=== PATIENT | male | born 1950 | race Caucasian/White ===

== ENCOUNTER 2017-12-13 22:15 | Observation (INO) ==
--- NOTE | 2017-12-13 22:23 | Emergency Department Note ---
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 He presents today due to right-sided facial numbness. He states that these symptoms began about 4 hours ago. also states that he has been somewhat confused. He has also had some drooping of his left upper lip. He denies any other numbness, tingling, weakness anywhere else. Denies any chest pain, shortness breath, nausea, vomiting, fevers, diarrhea, abdominal pain - Related Data Home Medications: Home Medications Medication Instructions Recorded Confirmed Insulin Glargine [Lantus] 25 units SQ HS 12/14/17 12/14/17 metFORMIN [Glucophage] 500 mg PO BIDWM 12/14/17 12/14/17 Allergies/Adverse Reactions: Allergies Allergy/AdvReac Type Severity Reaction Status Date / Time gabapentin AdvReac Itching Verified 12/13/17 22:38 All systems ED: reviewed and negative except as stated. Constitutional: Denies: fever Cardiovascular: Denies: chest pain Respiratory: Denies: cough, dyspnea Gastrointestinal: Denies: abdominal pain, nausea, vomiting, diarrhea Genitourinary: Denies: urgency, dysuria, frequency Neurological: Reports: numbness. Denies: headache, weakness Past Medical History - Past Medical History Attestation: Yes The following information was validated with the patient. Source: patient Physical Exam - General Limitations: no limitations General appearance: alert, in no apparent distress - Head Head exam: atraumatic, normocephalic, normal inspection - Eye Eye exam: Present: PERRL, EOMI, other (occasional esotropia when trying to close eyes) - ENT ENT exam: normal oropharynx, mucous membranes moist, other (drooping of left nasolabial fold, partial paralysis of left upper lip) - Neck Neck exam: Present: normal inspection, full ROM, trachea midline - Chest Chest inspection: Present: normal inspection, symmetric chest wall rise - Respiratory Respiratory exam: Present: normal lung sounds bilaterally - Cardiovascular Cardiovascular exam: Present: regular rate, normal rhythm, normal heart sounds - Abdominal Exam Abdominal exam: Present: soft, Non-Tender. Absent: tenderness, distention, guarding, rebound, rigidity - Extremities Exam Extremities exam: Present: normal inspection, full ROM. Absent: tenderness, pedal edema - Back Exam Back exam: Present: normal inspection, full ROM. Absent: tenderness - Neurological Exam Neurological exam: Present: alert, oriented X3, other (drooping of left nasolabial fold, partial paralysis of left upper lip; no other focal neuro deficits; NIH 2) - Psychiatric Psychiatric exam: Present: normal affect, normal mood - Skin Skin exam: Present: warm, dry, intact, normal color Course Course Narrative: Elevated blood pressure of 170s over 90s. Otherwise, the rest of the vitals were within normal limits. Physical exam showed: drooping of left nasolabial fold, partial paralysis of left upper lip; no other focal neuro deficits; NIH 2. The rest of his exam was fairly benign. Karuna was called. We will obtain basic blood work, EKG, chest x-ray, troponin, CT of the head to assess for stroke. Patient has no involvement of the left eyebrow, which is more concerning for stroke rather than something like Lam's palsy that would effect both upper and lower face. 23:22 EKG negative for any acute ST elevation or depression, normal sinus rhythm. Trop negative, CXR negative. CT of the head was negative for any acute intracranial abnormality. Patient was evaluated by [facility] stroke team, they believe that this is likely Lam's palsy due to left nasolabial paralysis and minor involvement of the left upper eyelid. However, he does have sparing of the left eyebrow. They do not feel that TPA was necessary at this time. Patient agreed. They did state that there is still a small risk that this was a stroke. Due to this along with the history of the patient being confused prior to coming in, will admit for further stroke workup, recommend MRI/MRA of the head and neck and/or Doppler of the carotids for further assessment. Vital Signs Temperature 98.1 F 12/13/17 22:19 Pulse Rate 74 12/13/17 22:19 Respiratory Rate 16 12/13/17 22:19 Blood Pressure 171/97 12/13/17 22:19 O2 Sat by Pulse Oximetry 97 12/13/17 22:19 Temperature 98.2 F 12/14/17 02:44 Pulse Rate 62 12/14/17 02:44 Respiratory Rate 16 12/14/17 02:44 Blood Pressure 170/90 12/14/17 02:44 O2 Sat by Pulse Oximetry 96 12/14/17 02:44 Oxygen Delivery Oxygen Delivery Room Air Neuro Symptoms/Deficit - MDM Narrative Medical decision making narrative: EKG negative for any acute ST elevation or depression, normal sinus rhythm. Trop negative, CXR negative. CT of the head was negative for any acute intracranial abnormality. Patient was evaluated by [facility] stroke team, they believe that this is likely Lam's palsy due to left nasolabial paralysis and minor involvement of the left upper eyelid. However, he does have sparing of the left eyebrow. They do not feel that TPA was necessary at this time. Patient agreed. They did state that there is still a small risk that this was a stroke. Due to this along with the history of the patient being confused prior to coming in, will admit for further stroke workup, recommend MRI/MRA of the head and neck and/or Doppler of the carotids for further assessment. - Medical Records Medical records reviewed: Yes I reviewed the patient's medical records. - Lab Data Lab results reviewed: Yes I reviewed the patient's lab results. Result diagrams: 12/13/17 22:33 12/13/17 22:33 Lab Results 12/13/17 12/13/17 12/13/17 Range/Units 22:17 22:33 22:33 WBC 7.8 (4.3-11.1) K/mcL RBC 4.53 (4.19-5.50) M/mcL Hgb 13.7 (12.9-16.9) g/dL Hct 40.7 (37.5-50.1) % MCV 89.8 (83.0-100.0) fL MCH 30.2 (28.0-33.3) pg MCHC 33.7 (31.6-35.5) g/dL RDW 12.8 (11.5-14.5) % Plt Count 242 (140-400) K/mcL MPV 10.6 (9.4-12.4) fL Immature Gran % 0.3 (0-4) % Seg Neutrophils % 51.2 % Lymphocytes % 34.9 % Monocytes % 9.3 % Eosinophils % 3.3 % Basophils % 1.0 % Neutrophils # 4.0 (1.6-8.9) K/mcL Lymphocytes # 2.7 (0.6-4.6) K/mcL Monocytes # 0.7 (0.0-1.3) K/mcL Eosinophils # 0.3 (0.0-0.6) K/mcL Basophils # 0.1 (0.0-0.2) K/mcL PT 12.5 H (9.4-12.1) Seconds INR 1.2 APTT 28.2 (26.0-36.0) Seconds Sodium (136-145) mEq/L Potassium (3.5-5.1) mEq/L Chloride (98-107) mEq/L Carbon Dioxide (23-29) mEq/L BUN (8-23) mg/dL Creatinine (0.70-1.30) mg/dL Est GFR ( Amer) (> 60) Est GFR (Non-Af Amer) (> 60) BUN/Creatinine Ratio (6-26) Glucose (70-105) mg/dL POC Glucose 235 H (58-89) Calculated Osmolality (280-300) Calcium (8.6-10.3) mg/dL Troponin I (< 0.04) ng/mL 12/13/17 12/13/17 Range/Units 22:33 22:33 WBC (4.3-11.1) K/mcL RBC (4.19-5.50) M/mcL Hgb (12.9-16.9) g/dL Hct (37.5-50.1) % MCV (83.0-100.0) fL MCH (28.0-33.3) pg MCHC (31.6-35.5) g/dL RDW (11.5-14.5) % Plt Count (140-400) K/mcL MPV (9.4-12.4) fL Immature Gran % (0-4) % Seg Neutrophils % % Lymphocytes % % Monocytes % % Eosinophils % % Basophils % % Neutrophils # (1.6-8.9) K/mcL Lymphocytes # (0.6-4.6) K/mcL Monocytes # (0.0-1.3) K/mcL Eosinophils # (0.0-0.6) K/mcL Basophils # (0.0-0.2) K/mcL PT (9.4-12.1) Seconds INR APTT (26.0-36.0) Seconds Sodium 138 (136-145) mEq/L Potassium 4.5 (3.5-5.1) mEq/L Chloride 102 (98-107) mEq/L Carbon Dioxide 26 (23-29) mEq/L BUN 34 H (8-23) mg/dL Creatinine 1.75 H (0.70-1.30) mg/dL Est GFR ( Amer) 47 L (> 60) Est GFR (Non-Af Amer) 39 L (> 60) BUN/Creatinine Ratio 19 (6-26) Glucose 218 H (70-105) mg/dL POC Glucose (58-89) Calculated Osmolality 300 (280-300) Calcium 9.5 (8.6-10.3) mg/dL Troponin I < 0.03 (< 0.04) ng/mL - Radiology Data Radiology results reviewed: Yes I reviewed the patient's radiology results. Head CT 12/13/17 22:29 IMPRESSION: No acute intracranial abnormality. Mild periventricular white matter low attenuation likely represent sequela of chronic small vessel ischemic disease. Partial visualization of near complete opacification of right maxillary sinus with internal high density material. Findings likely represent sequela of chronic sinus disease with inspissated secretions versus chronic indolent fungal colonization. Findings were discussed with Michi Garcia at 10:52 pm on 12/13/2017. D/ / 12/13/2017 22:56:54 Leo Echeverria MD / Sanaz Valenzuela Interpreting Provider: Leo Echeverria MD - EKG Data EKG attestation: Yes I reviewed and interpreted this EKG. EKG results narrative: 12/13/2017 at 22:43. Normal sinus rhythm. Rate 69. VT interval 221. QRS 122. QTC 424. No acute ST elevation or depression. Normal axis. NIH Stroke Scale - Level of Consciousness LOC: Alert - LOC Questions LOC Questions: Answers both correctly - LOC Commands LOC Commands: Performs both correctly - Best Gaze Best Gaze: Normal - Visual Visual: No visual loss - Facial Palsy Facial Palsy: Partial, total, or near-total paralysis of lower face - Motor Arms Motor Arm-Left: No drift for 10 seconds Motor Arm-Right: No drift for 10 seconds - Motor Legs Motor Leg-Left: No drift for 5 seconds Motor Leg-Right: No drift for 5 seconds - Limb Ataxia Limb Ataxia: Absent of affected limb too weak to perform exam - Sensory Sensory: Normal - Best Language Best Language: No aphasia - Dysarthria Dysarthria: Normal - Extinction and Inattention Extinction and Inattention: Normal - NIHSS Total Score NIHSS Total Score: 2 S.B.A.R. - S.B.AAnita Situation: Demographics, MOA Background: Presenting Complaint, Relevant PMH, Meds, & Allergies Assessment: Vital Signs, Course and respsone to treatment, Exam Concerns, Patient/Family Expectation, Pertinant Lab Results, Outstanding Labs Recommendation: Barrier(s) to disposition, Recommendation based on pending studies, treatments, or consults S.B.AAnita Report Given to: Dr. Renee Huerta Repor Time: 23:26 Attestation Statement - Attestation Attestation: I examined this patient and my medical decision-making was reviewed with the Resident Physician. I agree with the documented findings, disposition and treatment plan as described except to the extent set forth below. Patient to the ED with facial droop. Patient states this started with numbness on the other side of his face. He then developed a droop on the left side. states there was some confusion and difficulty finding his words. On examination he is a left facial droop. He is able to raise his eyebrow. Plan. Concern as there is sparing of the forehead. More consistent with an upper motor neuron dysfunction. We did perform a Shanika stroke and they did not feel he was a TPA candidate. At this point his diagnosis is an atypical Lam's palsy versus a stroke. Unable to obtain an MRI tonight. Admitted to medicine for neuro checks and MRI in the morning.
[2017-12-13 22:41] LABS: Eosinophils % 3.3 %; Hematocrit 40.7 % (37.5-50.1); Hemoglobin 13.7 g/dL (12.9-16.9); Immature Granulocytes % 0.3 % (0-4); Lymphocytes % 34.9 %; Mean Corpuscular HGB Conc 33.7 g/dL (31.6-35.5); Mean Corpuscular Hemoglobin 30.2 pg (28.0-33.3); Mean Corpuscular Volume 89.8 fL (83.0-100.0); Mean Platelet Volume 10.6 fL (9.4-12.4); Monocytes % 9.3 %; Platelet Count 242 K/mcL (140-400); Red Blood Count 4.53 M/mcL (4.19-5.50); Red Cell Distribution Width 12.8 % (11.5-14.5); Segmented Neutrophils % 51.2 %
[2017-12-13 22:42] LABS: Basophils # 0.1 K/mcL (0.0-0.2); Eosinophils # 0.3 K/mcL (0.0-0.6); Lymphocytes # 2.7 K/mcL (0.6-4.6); Monocytes # 0.7 K/mcL (0.0-1.3)
[2017-12-13 22:46] LABS: INR 1.2; Prothrombin Time 12.5 Seconds (9.4-12.1)
[2017-12-13 22:49] LABS: Activated Partial Thrombo Time 28.2 Seconds (26.0-36.0)
[2017-12-13 23:03] LABS: Potassium 4.5 mEq/L (3.5-5.1)
[2017-12-13 23:16] LABS: Calcium 9.5 mg/dL (8.6-10.3)
[2017-12-13] MEDS ORDERED: Aspirin 325 MG TABLET PO ONE (23:31)
[2017-12-14] MEDS ORDERED: Naloxone 0.4 MG/ML INJ IVP PRN (00:27)
[2017-12-14] MEDS ORDERED: Ringers Solution, Lactated 1,000 ML IVC SCH (00:30)
[2017-12-14] MEDS ORDERED: *HR* Dextrose 50 % in Water (Syg) 50 ML SYRINGE IVP PRN (00:31)
[2017-12-14] MEDS ORDERED: Dextrose Gel 15 GM/37.5 ML TUBE PO PRN ×2 (00:31)
[2017-12-14] MEDS ORDERED: D5% in Water 1,000 ML IVC PRN (00:31)
--- NOTE | 2017-12-14 00:35 | Internal Med History&Physical ---
Date of Encounter: 12/14/17 Time of Encounter: 00:33 Assessment and Plan (1) Facial droop Current visit: Yes Status: Acute with numbness bells palsy vs CVA check MRI brain consult neuro neuro checks (2) HTN (hypertension) Current visit: Yes Status: Acute prn hydralazine IV with parameters Qualifiers: Hypertension type: essential hypertension Qualified Code(s): I10 - Essential (primary) hypertension (3) Diabetes mellitus Current visit: Yes Status: Acute hold lantus, ISS q6 while nPO for now Qualifiers: Diabetes mellitus complication status: without complication Diabetes mellitus mcfp insulin use: with intermediate manager use Qualified Code(s): E11.9 - Type 2 diabetes mellitus without complications; Z79.4 - custodial (current) use of insulin; Z79.4 - custodial (current) use of insulin; Z79.4 - terminologist ( current) use of insulin; Z79.4 - custodial (current) use of insulin (4) CAD (coronary artery disease) Current visit: Yes Status: Acute Qualifiers: Coronary Disease-Associated Artery/Lesion type: [place] artery Associated angina: without angina Qualified Code(s): I25.10 - Atherosclerotic heart disease of [place] coronary artery without angina pectoris (5) HLD (hyperlipidemia) Current visit: Yes Status: Acute Qualifiers: Hyperlipidemia type: mixed hyperlipidemia Qualified Code(s): E78.2 - Mixed hyperlipidemia Internal Medicine - H&P: HPI Chief complaint: left cheek numbness History of present illness: Mr. Frias is a 67 year old male with hx of DMII on insulin, HTN, CAD, HLD, hx of right porter's palsy 5 years ago that has recovered who presents with acute onset left cheek numbness associated with a left facial droop. Admitted for porter 's palsy vs CVA - likely porter's since forehead does not appear affected. Symptoms began at 6-630 pm this evening prior to presentation when he noted some left cheek numbness (initially thought to be right but on exam, it appeared to be left). On closer exam, he appears to have a left facial droop. Symptoms did not improve with time. No other focal motor or sensory deficits noted by patient. Reports hx of right porter palsy 5 years ago that has resolved - this was treated at the [facility]. EKG personally reviewed with rate 69, NSR, 1st degree AV block XR/XR chest 1V portable IMPRESSION: Negative portable study. CT/CT stroke alert head wo con IMPRESSION: No acute intracranial abnormality. Mild periventricular white matter low attenuation likely represent sequela of chronic small vessel ischemic disease. Partial visualization of near complete opacification of right maxillary sinus with internal high density material. Findings likely represent sequela of chronic sinus disease with inspissated secretions versus chronic indolent fungal colonization. Findings were discussed with Michi Garcia at 10:52 pm on 12/13/2017. Past Med Surg Social Fam HX - Past Medical History Medical history: hyperlipidemia, hypertension, myocardial infarction - Past Surgical History Surgical History: non-contributory - Social History Smoking Status: Unknown if ever smoked - Additional Family History Additional family history: HTN Internal Medicine - H&P: Meds 3 Allergy/AdvReac Type Severity Reaction Status Date / Time gabapentin AdvReac Itching Verified 12/13/17 22:38 All Systems PM: A 10-system review of systems was performed and is negative for pertinent findings except as documented above in the HPI. Review of systems: ROS 14 point review of systems reviewed as best as possible given presentation. Pertinent positive or negative as per HPI or otherwise reviewed as negative - Constitutional Vitals: Temp Pulse Resp BP Pulse Ox 98.1 F 70 18 181/108 96 12/13/17 22:19 12/14/17 00:04 12/14/17 00:04 12/14/17 00:04 12/14/17 00:04 Exam: General - AAO x 3 Psych - Appropriate affect/speech. No agitation Eyes - SOHAIL. Eye lids intact. No scleral icterus Neuro - No gross peripheral deficit. Notable numbness over the left check and left facial droop on smiling. No gross CN deficits otherwise Heart - Sinus. RRR. S1 and S2 present. No added HS/murmurs appreciated. No elevated JVD appreciated. Lung - Adequate air entry b/l, No crackles/wheezes appreciated GI - Soft, non-tender. No hepatosplenomegaly/ascites. BS+ - No CVA/suprapubic tenderness or palpable bladder distension Internal Med - H&P Results - Labs CBC & Chem 7: 12/13/17 22:33 12/13/17 22:33 Labs: Short CBC 12/13/17 Range/Units 22:33 WBC 7.8 (4.3-11.1) K/mcL Hgb 13.7 (12.9-16.9) g/dL Hct 40.7 (37.5-50.1) % Plt Count 242 (140-400) K/mcL Neutrophils # 4.0 (1.6-8.9) K/mcL BMP 12/13/17 22:33 Sodium 138 Potassium 4.5 Chloride 102 Carbon Dioxide 26 BUN 34 H Creatinine 1.75 H Glucose 218 H Calcium 9.5 Cardiac Enzymes 12/13/17 Range/Units 22:33 Troponin I < 0.03 (< 0.04) ng/mL - Impressions ITS Impressions Head CT 12/13/17 22:29 IMPRESSION: No acute intracranial abnormality. Mild periventricular white matter low attenuation likely represent sequela of chronic small vessel ischemic disease. Partial visualization of near complete opacification of right maxillary sinus with internal high density material. Findings likely represent sequela of chronic sinus disease with inspissated secretions versus chronic indolent fungal colonization. Findings were discussed with Michi Garcia at 10:52 pm on 12/13/2017. D/ / 12/13/2017 22:56:54 Leo Echeverria MD / Sanaz Valenzuela Interpreting Provider: Leo Echeverria MD Chest X-Ray 12/13/17 22:30 IMPRESSION: Negative portable study. D/ / Katt Green Cha, MD / Katt Green Cha, MD Interpreting Provider: Katt Green Cha, MD
[2017-12-14] MEDS: Insulin LISPRO 300 UNITS/3 ML VIAL SQ SCH ×2 (03:07→06:22)
[2017-12-14 07:35] LABS: Hematocrit 36.6 % (37.5-50.1); Mean Corpuscular HGB Conc 33.1 g/dL (31.6-35.5); Mean Corpuscular Hemoglobin 29.9 pg (28.0-33.3); Mean Corpuscular Volume 90.4 fL (83.0-100.0); Mean Platelet Volume 10.9 fL (9.4-12.4); Platelet Count 220 K/mcL (140-400); Red Blood Count 4.05 M/mcL (4.19-5.50); Red Cell Distribution Width 12.7 % (11.5-14.5)
[2017-12-14 08:05] LABS: Hemoglobin 12.1 g/dL (12.9-16.9)
[2017-12-14 08:15] LABS: BUN/Creatinine Ratio 22 (6-26); Blood Urea Nitrogen 32 mg/dL (8-23); Carbon Dioxide 27 mEq/L (23-29); Chloride 104 mEq/L (98-107); Chol/HDL Ratio 5.4 (0-4.9); Cholesterol 125 mg/dL (< 200); Glucose 153 mg/dL (70-105); HDL Cholesterol 23 mg/dL (40-59); Osmolality,Calculated 300 (280-300); Potassium 3.7 mEq/L (3.5-5.1); Sodium 140 mEq/L (136-145); Triglycerides 451 mg/dL (< 150); eGFR For African Americans 58 (> 60); eGFR For Non-African Americans 48 (> 60)
--- NOTE | 2017-12-14 11:19 | Neurology - Consult Note ---
Date of Encounter: 12/14/17 Time of Encounter: 11:17 Assessment and Plan (1) Lam's palsy Status: Acute This patient was been admitted earlier with the symptoms of left facial droop without any other focal findings on his current neurological examination. MRI of the brain has been negative for any acute ischemic changes. examination seemed to be quite consistent with peripheral seventh nerve palsy. Suggest oral steroids as well as acyclovir/valacyclovir for the next 7 days. Patient is able to close the eyes but better to use eye lubricant as well as to make sure that he closes his eye during the sleep to avoid any corneal abrasion. beside that monitor his blood pressure may shore remains a stable from neurology standpoint patient could be discharged home with a follow-up neurology in 3-4 weeks History of Present Illness HPI: Mr. Frias is a 67 year old male devyn Frias is a 67 year old male with hx of DMII on insulin, HTN, CAD, HLD, hx of right lam's palsy 5 years ago that has recovered who presents with acute onset left cheek numbness associated with a left facial droop. Admitted for lma's palsy vs CVA - Symptoms began at 6-630 pm this evening prior to presentation when he noted some left cheek numbness (initially thought to be right but on exam, it appeared to be left). On closer exam, he appears to have a left facial droop. Symptoms did not improve with time. No other focal motor or sensory deficits noted by patient. Reports hx of right lam palsy 5 years ago that has resolved - this was treated at the [facility]. Past Med Surg Social Fam HX - Past Medical History Medical history: hyperlipidemia, hypertension, myocardial infarction Psychiatric history: no psych history - Past Surgical History Surgical History: non-contributory - Social History Smoking Status: Former smoker Smokeless Tobacco Status: No Alcohol use: none Drug use: none Medications and Allergies Artificial Tears SOLN [Akwa Tears] 1 drop LEFT EYE QID #1 bottle 12/14/17 [Rx] Atorvastatin [Lipitor] 20 mg PO HS #30 tablet 12/14/17 [Rx] Insulin Glargine [Lantus] 25 units SQ HS 12/14/17 [History] metFORMIN [Glucophage] 500 mg PO BIDWM 12/14/17 [History] predniSONE [PredniSONE] 60 mg PO DAILY 7 Days tablet 12/14/17 [Rx] valACYclovir [Valtrex] 1,000 mg PO TID 7 Days #21 tablet 12/14/17 [Rx] 3 Allergy/AdvReac Type Severity Reaction Status Date / Time gabapentin AdvReac Itching Verified 12/13/17 22:38 All Systems: A 10-system review of systems was performed and is negative for pertinent findings except as documented above in the HPI. Physical Examination - Vital Signs Vital Signs: Initial Vital Signs Temp Pulse Resp BP Pulse Ox 98.1 F 74 16 171/97 97 12/13/17 22:19 12/13/17 22:19 12/13/17 22:19 12/13/17 22:19 12/13/17 22:19 - Constitutional General appearance: comfortable - Neurologic Sensorimotor examination: intact Detailed motor examination: full strength in all major muscle groups Detailed sensory examination: intact Reflexes: Biceps: 1+, Triceps: 1+, Brachioradialis: 1+, Patella: 1+, Achilles: 1 + Mental Status Examination: awake, alert, oriented to person, oriented to place, oriented to time, follows commands appropriately, answers questions appropriately, no agnosia, no aphasia, no aproxia Cranial nerve examination: PERRL, EOMI, visual rojas intact, corneal reflexes brisk symmetrically, sensory to face intact, mastication intact, no dysarthria, hearing is intact symmetrically, soft palate elevates bilaterally upon phonation , gag reflex intact, flexes SCM and trapezius muscles symmetrically with full power, tongue protrudes midline, no atrophy or facial fasiculations present Cranial Nerve Exam: facial nerve palsy: Left, facial droop: Left, flattening of masolabic/folds: Left Cerebellar examination: no dysmetria, no gait ataxia, no truncal ataxia, no difficulty with rapid alternating movements Results - Laboratory Findings CBC and BMP: 12/14/17 07:00 12/14/17 07:00 Abnormal lab findings: Abnormal lab results RBC 4.05 M/mcL (4.19-5.50) L 12/14/17 07:00 Hgb 12.1 g/dL (12.9-16.9) L D 12/14/17 07:00 Hct 36.6 % (37.5-50.1) L 12/14/17 07:00 PT 12.5 Seconds (9.4-12.1) H 12/13/17 22:33 BUN 32 mg/dL (8-23) H 12/14/17 07:00 Creatinine 1.47 mg/dL (0.70-1.30) H 12/14/17 07:00 Est GFR ( Amer) 58 (> 60) L 12/14/17 07:00 Est GFR (Non-Af Amer) 48 (> 60) L 12/14/17 07:00 Glucose 153 mg/dL (70-105) H 12/14/17 07:00 POC Glucose 235 (58-89) H 12/13/17 22:17 Triglycerides 451 mg/dL (< 150) H 12/14/17 07:00 HDL Cholesterol 23 mg/dL (40-59) L 12/14/17 07:00 Cholesterol/HDL Ratio 5.4 (0-4.9) H 12/14/17 07:00 - Diagnostic Findings Additional findings: MRI of brain: No evidence of acute ischemia Mild chronic small vessel ischemic disease within the periventricular white matter Mild cerebral atrophy Severe right maxillary sinus disease Consult Discharge Plan - Plan Additional Instructions: F/up with PCP in 1-2 weeks [facility]errals: [facility]] - (Please call and schedule a hospital follow up for 5-7 days out. Thank you!) Prescriptions: Artificial Tears SOLN [Akwa Tears] 1 drop LEFT EYE QID #1 bottle Atorvastatin [Lipitor] 20 mg PO HS #30 tablet predniSONE [PredniSONE] 60 mg PO DAILY 7 Days tablet valACYclovir [Valtrex] 1,000 mg PO TID 7 Days #21 tablet
[2017-12-14] MEDS ORDERED: predniSONE 20 MG TABLET PO SCH (11:45)
[2017-12-14 11:49] VITALS: BP 153/81
[2017-12-14] MEDS ORDERED: Benzonatate 100 MG CAPSULE PO PRN (12:46)
[2017-12-14] MEDS ORDERED: Artificial Tears SOLN 15 ML BOTTLE LEFT EYE SCH (13:00)
--- NOTE | 2017-12-14 13:50 | Discharge Summary ---
Date of Encounter: 12/14/17 Time of Encounter: 11:00 - Discharge Diagnosis (1) Lam's palsy Priority: Primary Status: Acute (2) CKD (chronic kidney disease) Priority: Secondary Status: Chronic Qualifiers: Chronic kidney disease stage: stage 3 (moderate) Qualified Code(s): N18.3 - Chronic kidney disease, stage 3 (moderate) (3) CAD (coronary artery disease) Priority: Secondary Status: Chronic Qualifiers: Coronary Disease-Associated Artery/Lesion type: [place] artery [place] vs. transplanted heart: [place] heart Associated angina: without angina Qualified Code(s): I25.10 - Atherosclerotic heart disease of [place] coronary artery without angina pectoris (4) Diabetes mellitus Priority: Secondary Status: Chronic Qualifiers: Diabetes mellitus type: type 2 Diabetes mellitus complication status: with unspecified complications Diabetes mellitus intermediate frame tender insulin use: with intermediate frame tender use Qualified Code(s): E11.8 - Type 2 diabetes mellitus with unspecified complications; Z79.4 - terminologist (current) use of insulin; Z79.4 - terminologist ( current) use of insulin; Z79.4 - terminologist (current) use of insulin; Z79.4 - terminologist (current) use of insulin (5) HLD (hyperlipidemia) Priority: Secondary Status: Chronic Qualifiers: Hyperlipidemia type: pure hyperglyceridemia Qualified Code(s): E78.1 - Pure hyperglyceridemia (6) HTN (hypertension) Priority: Secondary Status: Chronic Qualifiers: Hypertension type: essential hypertension Qualified Code(s): I10 - Essential (primary) hypertension - Discharge Medications Prescriptions: Artificial Tears SOLN [Akwa Tears] 1 drop LEFT EYE QID #1 bottle Atorvastatin [Lipitor] 20 mg PO HS #30 tablet predniSONE [PredniSONE] 60 mg PO DAILY 7 Days tablet valACYclovir [Valtrex] 1,000 mg PO TID 7 Days #21 tablet Home Medications: Artificial Tears SOLN [Akwa Tears] 1 drop LEFT EYE QID #1 bottle 12/14/17 [Rx] Atorvastatin [Lipitor] 20 mg PO HS #30 tablet 12/14/17 [Rx] Insulin Glargine [Lantus] 25 units SQ HS 12/14/17 [History] metFORMIN [Glucophage] 500 mg PO BIDWM 12/14/17 [History] predniSONE [PredniSONE] 60 mg PO DAILY 7 Days tablet 12/14/17 [Rx] valACYclovir [Valtrex] 1,000 mg PO TID 7 Days #21 tablet 12/14/17 [Rx] Allergies/Adverse Reactions: 3 Allergy/AdvReac Type Severity Reaction Status Date / Time gabapentin AdvReac Itching Verified 12/13/17 22:38 Date of admission: 12/14/17 00:58 Primary care physician: PCP NONE Discharging clinician: Samantha Saunders Anticipated date of discharge: 12/14/17 - Patient Status Disposition: Home, Self-Care Condition: Good Functional capacity at discharge: independent ambulation Overall status at discharge: patient is progressing back to baseline - Discharge Instructions [facility] Up With: [facility]] - (Please call and schedule a hospital follow up for 5-7 days out. Thank you!) Additional Instructions: F/up with PCP in 1-2 weeks - Diet and Activity Activity: resume usual activities as tolerated Diet: diabetic diet, low fat, low cholesterol, low salt diet Hospital course: Mr. Frias is a 67 year old male with the above medical problems, who was admitted with left-sided facial droop and numbness. CT head and MRI brain showed no evidence of acute infarct or stroke. Patient has history of Lam's policy in the past and current signs and symptoms appear to be consistent with Lam's palsy with facial sparing of upper face. Neurology was consulted and agreed with this and patient has been started on oral steroids and valacyclovir. He is currently stable for discharge with outpatient follow-up. Lipid panel showed elevated triglycerides, this has been discussed with the patient and dietary and medication compliance were explained. He verbalized understanding. - Time Spent with Patient Total time spent providing and/or coordinating discharge services: Greater than 30 minutes (45 min) - Constitutional Vitals: Temp Pulse Resp BP Pulse Ox 98.1 F 66 17 153/81 96 12/14/17 11:49 12/14/17 11:49 12/14/17 11:49 12/14/17 11:49 12/14/17 11:49 General appearance: Present: A&O X 3, answers questions appropriately - Neurological Exam Neurological exam: Present: CN II-XII intact (left facial droop; sparing of upper face), oriented X3, no focal deficits. Absent: pronater drift, facial droop, speech deficit
[2017-12-14] MEDS ORDERED: valACYclovir 500 MG TABLET PO SCH (15:00)
[2017-12-15] MEDS ORDERED: Megestrol Acetate 400 MG/10 ML UDC PO SCH (09:00)
--- NOTE | 2017-12-16 07:34 | Electrocardiograph Report ---
[address] [address] Test Date: 2017-12-13 Pat Name: Agus Frias Department: 102 Room: 2A Gender: M Station Superintendent: Ekp : 1950 Requested By: Michi Garcia Order Number: [id number] Reading MD: Arie Prado MD Measurements Intervals [place] Rate: 69 P: 37 KS: 221 QRS: 18 QRSD: 122 T: 6 QT: 406 QTc: 424 Interpretive Statements SINUS RHYTHM WITH FIRST DEGREE AV BLOCK BASELINE ARTIFACT Electronically Signed On 12-16-2017 7:32:52 EST by Arie Prado MD
== END 2017-12-14 15:10 | disposition home or self-care (01) ==
LOC: EMEROO 22:15 → 2ANU 22:15 → SUATTDRO 12-14 00:58 → 2ANU 12-14 01:19
PROVIDERS: ADMIT Family Medicine; ATTEND Internal Medicine